=== PATIENT | male | born 1950 | race Caucasian/White ===

== ENCOUNTER 2018-08-17 22:04 | Inpatient (IN) ==
--- NOTE | 2018-08-17 23:39 | Emergency Department Note ---
General Adult HPI - General Chief complaint: Cold/Flu Symptoms Stated complaint: Not feeling well Time Seen by Provider: 08/17/18 23:22 Mode of arrival: ambulatory - History of Present Illness HPI Narrative: This 68-year-old comes in with a host of different symptoms and wanting to be able to function better. He feels so weak that he almost stumbles. He has no history of anemia. He has had some skin rash. He has had some cough, some panic attacks, difficulty sleeping, back and rib pain, dizziness, shortness of breath, cold feet, numb toes. He easily falls and he has been described as feeling pale. REVIEW OF SYSTEMS: Has had chills and sweats. No sore throat or runny nose. Has had some panic. No chest pain. Has had some coughing that is some productive I believe. He has a history of a DVT. He does smoke marijuana daily. - Related Data Home Medications Medication Instructions Recorded Confirmed No Known Home Meds 08/18/18 08/18/18 Allergies Allergy/AdvReac Type Severity Reaction Status Date / Time No Known Drug Allergies Allergy Verified 07/29/17 14:22 Past Medical History - Past Medical History Medical history: Reports: DVT, other (No anemia. ). Denies: cancer, CVA (Minor occasional elevated or told that it was high.), DM, hypertension (Although intermittently has been at times elevated.), myocardial infarction, pulmonary embolus, thyroid disease Psychiatric history: Denies: anxiety, depression Surgical history ED: Reports: splenectomy, other (splenic surgery - spleen is still there per patient. Some prostate procedure probably sounds like TURP.) - Social History smoking status: Current every day smoker Alcohol use: Reports: None, Rarely Drug use: Reports: none Physical Exam Limitations: no limitations General appearance: alert, in no apparent distress, lethargic (Moderate), malaise (Moderate) Head: atraumatic, normocephalic Eye: Present: EOMI ENT: mucous membranes moist Neck: Present: trachea midline. Absent: lymphadenopathy, thyromegaly Chest: Present: symmetric chest wall rise Respiratory: Present: normal lung sounds bilaterally. Absent: respiratory distress, wheezes, stridor, accessory muscle use, prolonged expiratory phase Cardiovascular: Present: regular rate, normal rhythm, tachycardia. Absent: systolic murmur, diastolic murmur Abdominal: Present: soft. Absent: distention, tenderness, guarding, rebound, rigidity, organomegaly, mass Neurological: Present: alert, oriented X3 Psychiatric: Present: flat affect, serious Skin: Present: warm, dry Course Vital Signs Temperature 97.5 F 08/17/18 22:05 Pulse Rate 79 08/17/18 22:05 Respiratory Rate 18 08/17/18 22:05 Blood Pressure 197/95 08/17/18 22:05 Pulse Oximetry (%) 99 08/17/18 22:05 Temperature 98.1 F 08/18/18 09:40 Pulse Rate 74 08/18/18 02:18 Respiratory Rate 20 08/18/18 05:08 Blood Pressure 179/99 08/18/18 09:40 Pulse Oximetry (%) 95 08/18/18 06:01 Medical Decision Making - [facility] Narrative Medical decision making narrative: ECG, labs, chest x-ray. Uncertain specific cause for multitude of symptoms. Labs came back with a bicarb of 21 and no ketones in his urine but his blood sugar was almost 700. Because of this, I discussed his case with hospitalist and Dr. Tyson Oro kindly accepted care and transfer to inpatient for additional evaluation and/or treatment. Insulin drip started at low-dose. - Lab Data Lab results reviewed: Yes I reviewed the patient's lab results. Result diagrams: 08/18/18 03:45 08/18/18 03:45 Lab Results 08/17/18 08/17/18 08/17/18 Range/Units 23:45 23:45 23:45 WBC 8.9 (4.5-11.0) K/mcL RBC 5.44 (4.50-5.90) M/mcL Hgb 15.7 (13.5-16.5) g/dL Hct 47.1 (41.0-55.0) % MCV 86.7 (80.0-100.0) fL MCH 29.0 (26.0-34.0) pg MCHC 33.4 (31.0-36.0) g/dL RDW 12.1 (11.5-14.5) % Plt Count 203 (140-440) K/mcL MPV 9.8 (7.4-10.4) fL Gran % 61.4 (38.0-78.0) % Lymph % (Auto) 27.0 (15.5-49.0) % Power % (Auto) 8.7 (1.0-12.0) % Eos % (Auto) 2.3 (0.0-7.0) % Baso % (Auto) 0.6 (0.0-2.0) % Gran # 5.5 (1.8-8.0) K/mcL Lymph # (Auto) 2.4 (1.5-4.8) K/mcL Power # (Auto) 0.8 (0.1-0.9) K/mcL Eos # (Auto) 0.2 (0.0-0.7) K/mcL Baso # (Auto) 0.1 (0.0-0.3) K/mcL Sodium 126 L (133-145) mmol/L Potassium 4.5 (3.3-5.1) mmol/L Chloride 90 L (96-108) mmol/L Carbon Dioxide 23 (22-30) mmol/L Anion Gap 13.0 (8-16) BUN 33 H (8-23) mg/dl Creatinine 1.4 H (0.7-1.2) mg/dl GFR Calculation 52 Glucose 691 H* (70-105) mg/dL Osmolality 319 H (280-300) mOSM/kg Calcium 8.6 (8.6-10.4) mg/dl Total Bilirubin 0.7 (0.0-1.0) mg/dL AST 29 (0-37) U/l ALT 46 H (0-40) U/l Alkaline Phosphatase 163 H (39-117) U/L C-Reactive Protein 0.3 (0.0-0.8) mg/dl Total Protein 7.3 (5.9-8.4) gm/dL Albumin 3.7 (3.2-5.2) gm/dL Globulin 3.6 (2.2-3.7) gm/dL Albumin/Globulin Ratio 1.0 (1.0-2.3) TSH 3.36 (0.27-5.01) uIU/ml - Radiology Data Radiology results reviewed: Yes I reviewed the patient's radiology results. Disposition Pt seen by MAGNETIC PROSPECTING SUPERVISOR/PA only: No Clinical Impression: Cigarette smoker Diabetes mellitus type 2, uncontrolled Qualifiers: Glycemic state: with hyperglycemia Qualified Code(s): E11.65 - Type 2 diabetes mellitus with hyperglycemia Summary: 1:27 a.m. - discussed with hospitalist, Dr. Tyson Oro, who kindly accepts this patient for inpatient care for insulin drip, etc. Disposition: Xfer As Inpt ([facility]) Condition: Fair
[2018-08-18 00:20] LABS: Basophils # (Auto) 0.1 K/mcL (0.0-0.3); Basophils % (Auto) 0.6 % (0.0-2.0); Eosinophils # (Auto) 0.2 K/mcL (0.0-0.7); Eosinophils % (Auto) 2.3 % (0.0-7.0); Granulocytes % (Auto) 61.4 % (38.0-78.0); Lymphocytes # (Auto) 2.4 K/mcL (1.5-4.8); Mean Cell Volume 86.7 fL (80.0-100.0); Mean Corpuscular HGB Conc 33.4 g/dL (31.0-36.0); Monocytes # (Auto) 0.8 K/mcL (0.1-0.9); Monocytes % (Auto) 8.7 % (1.0-12.0); Platelet Count 203 K/mcL (140-440); RBC 5.44 M/mcL (4.50-5.90); Red Cell Distribution Width 12.1 % (11.5-14.5)
[2018-08-18 00:49] LABS: ALT/SGPT 46 U/l (0-40); Albumin 3.7 gm/dL (3.2-5.2); Alkaline Phosphatase 163 U/L (39-117); Blood Urea Nitrogen 33 mg/dl (8-23); C-Reactive Protein 0.3 mg/dl (0.0-0.8)
[2018-08-18] MEDS ORDERED: INSULIN REGULAR, HUMAN 1 UNIT/0.01 ML UNIT IV ONE (00:53)
[2018-08-18] MEDS ORDERED: ACETAMINOPHEN 325 MG TABLET PO PRN (01:25)
[2018-08-18] MEDS ORDERED: ONDANSETRON 4 MG/2 ML VIAL IV PRN ×3 (01:25→08:57)
[2018-08-18] MEDS ORDERED: INSULIN REGULAR, HUMAN 50 UNIT in 0.9 % SODIUM CHLORIDE 99.5 ML IV SCH ×2 (01:30→08:52)
[2018-08-18] MEDS ORDERED: 0.9 % SODIUM CHLORIDE 1,000 ML IV SCH ×2 (01:30→06:14)
[2018-08-18] MEDS ORDERED: INSULIN REGULAR, HUMAN 1 UNIT/0.01 ML UNIT ONE ×3 (02:17→06:02)
[2018-08-18] MEDS ORDERED: 0.9 % SODIUM CHLORIDE 250 ML IV SCH ×2 (02:45→08:52)
[2018-08-18 05:41] LABS: ABG Methemoglobin 0.3 % (0.4-1.5); VBG Base Excess 0 (-2.0-2.0); VBG HCO3 26.3 mmol/L (24.0-28.0); VBG Oxygen Saturation 64.3 % (40.0-70.0); VBG PCO2 48.7 mmHg (41.0-51.0); VBG PH 7.35 U (7.32-7.42); VBG PO2 39 mmHg (25-40); VBG Total CO2 27.8 mmol/L (25.0-29.0)
--- NOTE | 2018-08-18 05:53 | XRay Report ---
CLINICAL INFORMATION: short of breath COMPARISON: 07/29/2017 FINDINGS: Heart size, mediastinum and pulmonary vessels are normal. The lungs are clear. Mild pleural parenchymal scarring blunts the left costophrenic angle - as previously seen. No effusions. Bones and soft tissues are normal IMPRESSION: No acute disease Interpreted and Authenticated by: Aiden Forbes 08/18/18
[2018-08-18 05:59] LABS: Basophils # (Auto) 0 K/mcL (0.0-0.3); Basophils % (Auto) 0.6 % (0.0-2.0); Eosinophils # (Auto) 0.2 K/mcL (0.0-0.7); Eosinophils % (Auto) 2.3 % (0.0-7.0); Granulocytes % (Auto) 66.1 % (38.0-78.0); Lymphocytes # (Auto) 1.9 K/mcL (1.5-4.8); Lymphocytes % (Auto) 21.8 % (15.5-49.0); Mean Cell Volume 86.1 fL (80.0-100.0); Monocytes # (Auto) 0.8 K/mcL (0.1-0.9); Monocytes % (Auto) 9.2 % (1.0-12.0); Platelet Count 182 K/mcL (140-440); RBC 4.76 M/mcL (4.50-5.90); Red Cell Distribution Width 12.6 % (11.5-14.5)
[2018-08-18 07:07] LABS: ALT/SGPT 36 U/l (0-40); Albumin 2.9 gm/dL (3.2-5.2); Albumin/Globulin Ratio 1.1 (1.0-2.3); Alkaline Phosphatase 116 U/L (39-117); Bilirubin,Direct < 0.2 mg/dL (0.0-0.3); Blood Urea Nitrogen 28 mg/dl (8-23); Gamma Glutamyl Transpeptidase 33 U/L (8-61); Uric Acid 3.9 mg/dL (2.5-8.0)
[2018-08-18] MEDS ORDERED: DEXTROSE 5%-NS 1,000 ML IV SCH ×2 (08:00→08:52)
[2018-08-18 08:10] LABS: Appearance,Urine CLOUDY; Bacteria,Urine 0 /hpf (0); Bilirubin,Urine NEG (NEG); Color,Urine YELLOW; Glucose,Urine (UA) >=500 mg/dL (NEG); Leukocyte Esterase,Urine 500 /uL (NEG); Protein,Urine 100 mg/dL (NEG); Urine Blood 0.03 mg/dL (<0.03); Urine RBC 28 /hpf (0-1); Urine Squamous Epithelial Cell 0 /hpf (0-4); Urine WBC > 182 /hpf (0-4); Urobilinogen,Urine NEG (NEG)
--- NOTE | 2018-08-18 08:31 | Internal Med History&Physical ---
Medical - H&P: [facility] Patient information: Note initiated : 08/18/18 at 8:28 am Service Date, if different from initiated Date: [] Patient: Charly Vilchis 68 y/o M admitted on 08/18/18 for Not feeling well. Chief Complaint: [] History of present illness: Mr. Vilchis is a 68 year old M who presents to the ER after not feeling well for roughly 2 weeks. He complains of shakiness lightheadedness weakness poor sleep anxiety. He has polyuria polydipsia. He is a chronic cough but feels like it is a little bit worse than usual to dry cough. He has some shortness of breath associated with it. He carries no diagnosis of any medical conditions. He states it takes him half an hour to get ready to go to grocery store because he is so weak and fatigued. Occasional headaches. In the ER workup showed a severe hyperglycemia. Chest x-ray unremarkable. And mildly hypertensive. Put on insulin drip. Review of Systems: Pertinent positives as above. Denies fever/chills/nausea/vomiting/chest or abdominal pain/diarrhea. 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 Family history: Mother was healthy Father had unknown cancer Social history: Patient smokes a pack per day cigarettes occasionally drinks alcohol use marijuana regularly lives by himself Medical - H&P: Meds Allergies Allergy/AdvReac Type Severity Reaction Status Date / Time No Known Drug Allergies Allergy Verified 07/29/17 14:22 Medical - H&P: Exam - Constitutional Vitals: Temp Pulse Resp BP Pulse Ox 98.3 F 74 20 170/87 97 08/18/18 02:07 08/18/18 02:18 08/18/18 05:08 08/18/18 05:08 08/18/18 05:08 Exam: General: Alert, Awake, No acute Distress Eyes/N/T: EOMI, PEERL, DMM Head/Neck: neck supple, normocephalic atraumatic CV: RRR, No murmurs, normal s1/s2 Pulm: Clear b/l, no wheezing/rhonchi/rales Abd: soft, nontender, +BS x4 Ext: no clubbing/cyanosis/edema Neuro: Alert, no focal deficits, moves all extremities, CN 2-12 grossly intact, symmetrical strength b/l upper/lower, sensations intact b/l upper/lower Skin: warm/dry Medical - H&P: Reslt - Labs CBC & Chem 7: 08/18/18 03:45 08/18/18 03:45 Labs: Short CBC 08/17/18 08/18/18 Range/Units 23:45 03:45 WBC 8.9 8.9 (4.5-11.0) K/mcL Hgb 15.7 14.0 (13.5-16.5) g/dL Hct 47.1 41.0 (41.0-55.0) % Plt Count 203 182 (140-440) K/mcL BMP 08/17/18 08/18/18 23:45 03:45 Sodium 126 L 135 Potassium 4.5 3.4 Chloride 90 L 101 Carbon Dioxide 23 22 BUN 33 H 28 H Creatinine 1.4 H 1.2 Glucose 691 H* 510 H* Calcium 8.6 6.9 L Liver Function 08/17/18 08/18/18 Range/Units 23:45 03:45 Total Bilirubin 0.7 0.6 (0.0-1.0) mg/dL Direct Bilirubin < 0.2 (0.0-0.3) mg/dL GGT 33 (8-61) U/L AST 29 24 (0-37) U/l ALT 46 H 36 (0-40) U/l Alkaline Phosphatase 163 H 116 (39-117) U/L Albumin 3.7 2.9 L (3.2-5.2) gm/dL Urine 08/18/18 Range/Units 07:18 Urine Color Yellow Urine Appearance Cloudy Urine pH 6.0 (5.0-9.0) Ur Specific [place] 1.020 (1.000-1.035) Urine Protein 100 A (NEG) mg/dL Urine Glucose (UA) >=500 A (NEG) mg/dL - ABG Interpretation ABG results: 08/18/18 03:45 ABG Methemoglobin 0.3 L VBG pH 7.35 VBG pCO2 48.7 VBG pO2 39 VBG HCO3 26.3 VBG Total CO2 27.8 VBG O2 Saturation 64.3 VBG Base Excess 0 - Impressions Checks his chest x-ray unremarkable for any acute disease Medical - H&P: A/P - Narrative A/P Narrative: A: *DM (New Diagnosis) w/HHS: -A1c 14.7 *ASHWIN on CKD III: improving *Tobacco Abuse *HTN: has not been on any meds * P: -IVF's -wean insulin gtt off to basal insulin and SSI with accuchecks q4h for now -DM education -start norvasc and titrate BP meds, ACEI/ARB when renal fxn stable -f/u renal fxn -SSI -ADA diet -ppx: lovenox Medical - H&P: Qual - VTE Deep Vein Thrombosis/Pulmonary Embolism Present on Admission: No
[2018-08-18 08:49] LABS: Hemoglobin A1C 14.7 % HGB (4.0-6.0)
[2018-08-18] MEDS ORDERED: 0.9 % SODIUM CHLORIDE 1,000 ML IV ONE ×2 (08:50→08:52)
[2018-08-18] MEDS ORDERED: LACTULOSE 20 GM/30 ML ORAL.SOL PO PRN (08:57)
[2018-08-18] MEDS ORDERED: IPRATROPIUM/ALBUTEROL 3 ML AMPUL.NEB NEB PRN (08:57)
[2018-08-18] MEDS ORDERED: DEXTROSE 50% 50 ML VIAL IV PRN (08:57)
[2018-08-18] MEDS ORDERED: PROCHLORPERAZINE 10 MG TABLET PO PRN (08:57)
[2018-08-18] MEDS ORDERED: DEXTROSE 31 GM ORAL.SUSP PO PRN (08:57)
[2018-08-18] MEDS ORDERED: POTASSIUM CHLORIDE 40 MEQ in DEXTROSE 5% IN WATER 500 ML IV PRN (08:57)
[2018-08-18] MEDS ORDERED: MAGNESIUM SULFATE 2 GM/50 ML BAG IV PRN (08:57)
[2018-08-18] MEDS ORDERED: POTASSIUM CHLORIDE 20 MEQ TABLET PO PRN ×2 (08:57)
[2018-08-18] MEDS ORDERED: POLYETHYLENE GLYCOL 3350 17 GM PACKET PO PRN (08:57)
[2018-08-18] MEDS: DOCUSATE SODIUM 100 MG CAPSULE PO SCH ×2 (09:28→21:01)
[2018-08-18] MEDS: INSULIN LISPRO 1 UNIT/0.01 ML UNIT SQ SCH ×4 (09:28→21:09)
[2018-08-18] MEDS: INSULIN GLARGINE, HUMAN 1 UNIT/0.01 ML SQ SCH (09:28)
[2018-08-18] MEDS: FAMOTIDINE 20 MG TABLET PO SCH ×2 (09:28→21:01)
[2018-08-18] MEDS: amLODIPine 5 MG TABLET PO SCH (09:28)
[2018-08-18] MEDS: ENOXAPARIN 40 MG/0.4 ML SYRINGE SQ SCH (09:28)
[2018-08-18] MEDS: 0.9 % SODIUM CHLORIDE 1,000 ML IV SCH ×4 (09:38→19:41)
[2018-08-18] MEDS: ACETAMINOPHEN 325 MG TABLET PO PRN ×2 (09:40→19:40)
[2018-08-18] MEDS: LABETALOL 5 MG/ML ML IV PRN (13:31)
[2018-08-18] MEDS: 0.9 % SODIUM CHLORIDE 10 ML SYRINGE IV SCH ×2 (13:59→21:09)
[2018-08-18] MEDS: NICOTINE 21 MG PATCH TOPICAL SCH (19:23)
[2018-08-18] MEDS ORDERED: NICOTINE 21 MG PATCH TOPICAL ONE (19:24)
[2018-08-18] MEDS ORDERED: SENNOSIDES 1 TABLET PO PRN (21:00)
[2018-08-19] MEDS: LABETALOL 5 MG/ML ML IV PRN (01:43)
[2018-08-19 05:36] LABS: Basophils # (Auto) 0.1 K/mcL (0.0-0.3); Basophils % (Auto) 0.9 % (0.0-2.0); Eosinophils # (Auto) 0.3 K/mcL (0.0-0.7); Eosinophils % (Auto) 3.6 % (0.0-7.0); Granulocytes % (Auto) 56.1 % (38.0-78.0); Lymphocytes # (Auto) 2.3 K/mcL (1.5-4.8); Lymphocytes % (Auto) 29.7 % (15.5-49.0); Mean Cell Volume 86.8 fL (80.0-100.0); Mean Corpuscular HGB Conc 33.4 g/dL (31.0-36.0); Monocytes # (Auto) 0.8 K/mcL (0.1-0.9); Monocytes % (Auto) 9.7 % (1.0-12.0); Platelet Count 170 K/mcL (140-440); RBC 4.57 M/mcL (4.50-5.90); Red Cell Distribution Width 12.5 % (11.5-14.5)
[2018-08-19] MEDS: 0.9 % SODIUM CHLORIDE 10 ML SYRINGE IV SCH (05:47)
[2018-08-19 05:56] LABS: ALT/SGPT 35 U/l (0-40); Albumin 2.9 gm/dL (3.2-5.2); Alkaline Phosphatase 97 U/L (39-117); Bilirubin,Direct < 0.2 mg/dL (0.0-0.3); Blood Urea Nitrogen 16 mg/dl (8-23); Gamma Glutamyl Transpeptidase 33 U/L (8-61); Uric Acid 3.7 mg/dL (2.5-8.0)
[2018-08-19] MEDS ORDERED: cefTRIAXone 1 GM VIAL IV SCH (07:30)
[2018-08-19] MEDS ORDERED: LISINOPRIL 5 MG TABLET PO SCH (09:00)
[2018-08-19] MEDS: DOCUSATE SODIUM 100 MG CAPSULE PO SCH (09:23)
[2018-08-19] MEDS: amLODIPine 5 MG TABLET PO SCH (09:23)
[2018-08-19] MEDS: FAMOTIDINE 20 MG TABLET PO SCH (09:23)
[2018-08-19] MEDS: ENOXAPARIN 40 MG/0.4 ML SYRINGE SQ SCH (09:24)
[2018-08-19] MEDS: INSULIN LISPRO 1 UNIT/0.01 ML UNIT SQ SCH ×2 (09:25→11:20)
[2018-08-19] MEDS: INSULIN GLARGINE, HUMAN 1 UNIT/0.01 ML SQ SCH (09:25)
[2018-08-19] MEDS: NICOTINE 21 MG PATCH TOPICAL SCH (09:45)
--- NOTE | 2018-08-19 10:12 | Discharge Summary ---
Medical - DS: Prov Patient information: Note initiated : 08/19/18 at 10:06 am Service Date, if different from initiated Date: [] Patient: Charly Vilchis 68 y/o M admitted on 08/18/18 for Not feeling well. Chief Complaint: [] Date of admission: 08/18/18 02:07 Discharge date: 08/19/18 Primary care physician: Sybil Pike Consults: 08/18/18 Consult to Physician [CONS] Stat Comment: Consulting Provider: Tyson Oro Reason For Exam: Physician to Consult Discharging clinician: Adilene Nicholson Medical - DS: Meds - Discharge Medications Prescriptions: Cefdinir 300 mg PO BID #12 cap glipiZIDE/METFORMIN HCL [Glipizide-Metformin 2.5-500 mg] 1 each PO BID #60 tab Lisinopril [Zestril] 10 mg PO DAILY #30 tab Active and Home Medications: Home Medications No Known Home Meds 08/18/18 [History Confirmed 08/18/18 Last Taken Unknown] Medical - DS: Hosp Hospital course: Mr. Vilchis is a 68 year old M who presents to the ER after not feeling well for roughly 2 weeks. He complains of shakiness lightheadedness weakness poor sleep anxiety. He has polyuria polydipsia. He is a chronic cough but feels like it is a little bit worse than usual to dry cough. He has some shortness of breath associated with it. He carries no diagnosis of any medical conditions. He states it takes him half an hour to get ready to go to grocery store because he is so weak and fatigued. Occasional headaches. In the ER workup showed a severe hyperglycemia. Chest x-ray unremarkable. And mildly hypertensive. Put on insulin drip and admitted to the hospital for further management, no e/o DKA The patient was weaned off the insulin drip and switched to SSI and lantus reg jaylin. The patient glucose control improved. The patient seems like an individual who will not be very compliant with insulin. I am starting the patient on oral metformin 500mg and glipizide 2.5mg bid, for now, and starting him on lisinopril 10mg once daily for bp control. Major risks benefits of the medication discussed, all questions answered. The patietn also has ua suggestive of UTI, and will be treated for 7 days with antibiotics, (cefdinir x 7 days) The patient was feeling much better today and expressed a strong desire to be discharged. Discharge diagnosis: New Diabetes, UTI, HTN - Time Spent with Patient Total time spent providing and/or coordinating discharge services: Greater than 30 minutes Medical - DS: Exam - Constitutional Vitals: Vital Signs Temp Pulse Pulse Resp BP BP Pulse Ox 08/19/18 03:49 98.3 F 16 175/92 99 08/19/18 02:06 153/96 08/19/18 02:01 66 152/89 96 08/19/18 01:56 68 161/91 98 08/19/18 01:51 78 161/93 97 08/19/18 01:48 79 162/99 96 08/19/18 01:46 82 137/122 96 08/19/18 01:40 82 184/111 96 08/19/18 01:31 80 174/97 97 08/19/18 01:29 85 179/108 96 08/19/18 01:27 87 192/112 98 08/19/18 01:24 88 189/132 98 08/19/18 01:22 87 169/126 98 08/19/18 01:17 192/108 08/19/18 01:15 181/98 08/19/18 00:06 98.2 F 76 16 178/106 100 08/18/18 20:01 98.8 F 18 145/89 97 08/18/18 20:00 97 08/18/18 19:36 89 183/114 97 08/18/18 16:40 154/90 08/18/18 16:00 99.0 F 68 18 154/90 97 08/18/18 14:29 139/97 08/18/18 14:16 131/75 08/18/18 14:03 113/57 08/18/18 14:01 113/57 08/18/18 13:33 228/199 08/18/18 12:00 98.7 F 96 H 20 169/101 96 08/18/18 11:52 169/101 Intake and Output 08/18/18 08/19/18 08/19/18 21:59 05:59 13:59 Intake Total 2380 / 7468 1240 / 7468 Output Total 1200 / 4125 2250 / 4125 Balance 1180 / 3343 -1010 / 3343 Intake: IV 1800 / 4008 1000 / 4008 Sodium Chloride 0.9% 1,000 ml @ 1800 / 2800 1000 / 2800 200 mls/hr IV .Q5H [facility] Rx#: [id number] Oral 580 / 2460 240 / 2460 Output: Void Amount 1200 / 3950 2250 / 3950 Other: Meal Dinner Percent of Meal Consumed 100% Feeding Ability Assist with Tray Set Up Urine Appearance Clear Cloudy Urine Color Dark Yellow Pale Urine Odor Strong Stool Size Large Stool Color Brown Green Stool Consistency Formed Weight 216 lb Additional comments: Constitutional; Afebrile, cooperative, alert, not in distress. Respiratory system: Air Entry equal on both sides, No crackles or wheezing, no rhonchi. CVS- Rate rhythm regular, S1,S2 heard, no gallop, no rub. Abdomen- Soft nontender abdomen, no organomegaly, no tenderness, no guarding or rigidity, TRAVELING STOREKEEPER- AOOx3, moving all extremities, no gross focal deficit noted. Medical - DS: Data Labs on day of discharge: Labs from last 24 hours 08/19/18 08/19/18 03:45 03:45 WBC 7.8 RBC 4.57 Hgb 13.3 L Hct 39.7 L MCV 86.8 MCH 29.0 MCHC 33.4 RDW 12.5 Plt Count 170 MPV 9.6 Gran % 56.1 Lymph % (Auto) 29.7 [place] % (Auto) 9.7 Eos % (Auto) 3.6 Baso % (Auto) 0.9 Gran # 4.4 Lymph # (Auto) 2.3 [place] # (Auto) 0.8 Eos # (Auto) 0.3 Baso # (Auto) 0.1 Sodium 137 Potassium 3.7 Chloride 106 Carbon Dioxide 20 L Anion Gap 11.0 BUN 16 Creatinine 1.1 GFR Calculation 70 Glucose 195 H Uric Acid 3.7 Calcium 7.5 L Phosphorus 2.0 L Magnesium 1.7 Total Bilirubin 0.6 Direct Bilirubin < 0.2 GGT 33 AST 27 ALT 35 Alkaline Phosphatase 97 Lactate Dehydrogenase 174 Total Protein 5.7 L Albumin 2.9 L Globulin 2.8 Albumin/Globulin Ratio 1.0 Triglycerides 103 Medical - DS: A/P - Patient/Caregiver Discharge Instructions Activity: increase activity as tolerated Diet: Consistent Carbohydrate Additional Instructions: Please test your glucose daily. Call your PCP if your glucose values are more than 400 If your symptoms worsen, or if you develop more symptoms. please go to the ER I am starting you on an antibiotic for a urinary tract infection, Cefdinir 1 capsule for 6 more days I am starting you no a medication called lisinopril for blood pressure control. I am starting you on metformin-glipizde for glucose control. This medication can sometimes cause low glucose values, if you notice shaking, nausea, sweating, or not feeling well, please check your glucose level. If glucose is < 70 please drink some juice or eat a chocolate. Please call your PCP to adjust your medication Follow up with PCP in 1 week Follow up with DM education as outpatient to improve you diet/ and lifestyle to help you deal with your diabetes. Prescriptions: Cefdinir 300 mg PO BID #12 cap glipiZIDE/METFORMIN HCL [Glipizide-Metformin 2.5-500 mg] 1 each PO BID #60 tab Lisinopril [Zestril] 10 mg PO DAILY #30 tab - Follow up Plan Follow up with: Sybil Pike ARNP [Primary Care Provider] - 08/24/18 12:00 pm Disposition: Home, Self-Care Prognosis: Fair Rehab Potential: Fair I certify that the patient requires SNF services: No Overall status at discharge: patient is progressing back to baseline Medical - DS: Qual - VTE Deep Vein Thrombosis/Pulmonary Embolism Present on Admission: No
== END 2018-08-19 12:00 | disposition home or self-care (01) | DRG 638 ==
LOC: ED 22:04 → ICU 08-18 02:05
PROVIDERS: ADMIT Internal Medicine; ATTEND Internal Medicine

== ENCOUNTER 2020-09-24 05:43 | Inpatient (IN) ==
[2020-09-24] MEDS ORDERED: IOPAMIDOL 100 ML BOTTLE IV ONE (05:44)
--- NOTE | 2020-09-24 06:18 | Emergency Department Note ---
Neuro HPI General Chief Complaint: Neuro Symptoms/Deficit Stated Complaint: Right side weakness since yesterday Time Seen by Provider: 09/24/20 05:55 Source: patient Mode of arrival: ambulatory Limitations: physical limitation History of Present Illness HPI Narrative: Narrative: Onset yesterday around 9 AM of right-sided weakness affecting his right arm and right leg. He has some movement. He admits to some methamphetamine yesterday which she was taking for treatment of pain that includes abdomen and low back pain. He denies recent fall or injury or hitting his head. Normally he lives with his girlfriend and gets around on his own. He was not able to do this in the past 24 hours and just peed into a urinal but he is urinating more frequent. Pain kept him awake last evening. He has not slept much during the night. He also has been urinating every couple of hours. He denies diarrhea or constipation or hematochezia or nausea or vomiting or fever. He had a little runny nose but this is chronic for him no sore throat. He does feel hungry and thirsty. Related Data Previous Rx's Medication Instructions Recorded blood sugar diagnostic #50 each 08/19/18 cefdinir 300 mg PO BID #12 cap 08/19/18 glipizide-metformin 1 each PO BID #60 tab 08/19/18 lisinopril 10 mg PO DAILY #30 tab 08/19/18 Allergies Allergy/AdvReac Type Severity Reaction Status Date / Time No Known Drug Allergies Allergy Verified 09/24/20 05:53 Review of Systems ROS ROS Narrative: Narrative: No fevers chills sweats No blurry vision or double vision Tatian's No cough or shortness of breath No rashes Little headache this morning. No lightheadedness No anxiety or depression. PFS Narrative Patient History Narrative: Narrative: Medical/Surgical/Family History All Active Problems Overweight (BMI 25.0-29.9) (Acute) Diabetes mellitus type 2, uncontrolled (Acute) Cigarette smoker (Chronic) Medical History (Updated 09/24/20 @ 06:18 by Pako Soni DO) Abscess of skin or subcutaneous tissue (Resolved) Acute urinary retention (Resolved) Cigarette smoker (Chronic) DVT (deep venous thrombosis) (Resolved) Laceration (Inactive) Overweight (BMI 25.0-29.9) (Acute) Pruritic condition (Resolved) Short of breath on exertion (Resolved) UTI (urinary tract infection) (Resolved) Social History Smoking Status: Current every day smoker Alcohol Intake Frequency: holiday/special occasion only Substance Use: marijuana (occasionally for pain) and amphetamines (meth yesterday) Exam Narrative Narrative: Narrative: General Limitations: physical limitation General appearance: Present alert, in no apparent distress, nontoxic and sleepy; Absent anxious Head Head: Present atraumatic and normocephalic Eye Eye: Present PERRL and EOMI; Absent conjunctival injection ENT ENT: Present normal oropharynx, mucous membranes moist and other (Symmetric midline tongue and uvula. Tongue is moderately white but homogeneous.) Neck Neck: Present trachea midline; Absent tenderness and lymphadenopathy Chest Chest: Present normal inspection and symmetric chest wall rise Respiratory Respiratory: Present normal lung sounds bilaterally; Absent respiratory distress, rales/crackles, wheezes, accessory muscle use and prolonged expiratory phase Cardiovascular Cardiovascular: Present regular rate and normal rhythm; Absent systolic murmur Adbominal Abdominal: Present soft and tenderness (Mild diffuse.); Absent distention, guarding, rebound, rigidity and organomegaly Extremities Extremities: Present normal inspection; Absent tenderness, pedal edema, pretibial edema and calf tenderness Back Back: Present normal inspection; Absent CVA tenderness (R), CVA tenderness (L) and spinous process tenderness Neurological Neurological: Present alert and oriented X3 Psychiatric Psychiatric: Present flat affect, serious and poor eye contact; Absent agitated, anxious and homicidal ideation Skin Skin: Present warm (WNL) and normal color Course Vital Signs Vital signs: Vital Signs Temperature 97.4 F 09/24/20 05:44 Pulse Rate 87 09/24/20 05:44 Respiratory Rate 19 09/24/20 05:44 Blood Pressure 209/132 09/24/20 05:44 Pulse Oximetry (%) 99 09/24/20 05:44 Temperature 97.4 F 09/24/20 05:44 Pulse Rate 78 09/24/20 06:59 Respiratory Rate 18 09/24/20 06:59 Blood Pressure 191/125 09/24/20 06:59 Pulse Oximetry (%) 97 09/24/20 06:59 MDM MDM Narrative Medical decision making narrative: Narrative: 5:58 AM - right sided weakness since yesterday morning of uncertain etiology or cause. Some abdominal pain and back pain. Will do CT scan of the head and multiple labs. 7 AM - CT scan of the head: 1. Cerebral atrophy 2. White matter abnormality and nonacute lacunar infarctions 3. No acute abnormality Due to change in shift patient's care transferred to Dr. Sorto who will finalize patient's evaluation and disposition. Lab Data Result diagrams: 09/24/20 06:35 09/24/20 06:35 Discharge Plan Patient/Caregiver Discharge Instructions Pt seen by CENTRAL LAB TECHNICIAN/PA only: No Patient Disposition: Still a Patient Condition: Undetermined Follow up with: Sybil Pike ARNP [Primary Care Provider] - Prescriptions: No Action (DME) blood sugar diagnostic strip See Dose Instructions .ROUTE .MEDSUPPLY Qty: 50 RF: 0 cefdinir 300 MG capsule 300 mg PO BID Qty: 12 RF: 0 lisinopril 10 MG tablet 10 mg PO DAILY Qty: 30 RF: 0 glipizide-metformin 1 EACH tablet 1 each PO BID Qty: 60 RF: 0
--- NOTE | 2020-09-24 07:00 | Cat Scan Report ---
INDICATION: right sided weakness onset yestd AM COMPARISON: None. TECHNIQUE: Axial noncontrast-enhanced images through the brain. Sagittally and coronally reformatted images. FINDINGS: Cerebral hemispheres:No intraaxial hemorrhage. Cerebral atrophy age. Prominent ventricles and superficial subarachnoid spaces. There is extensive white matter abnormality. Generalized low attenuation consistent with small vessel ischemic change. There are nonacute infarctions both thalami and right caudate nucleus. These findings are advanced for age. Or diabetes recommended. White matter abnormality is nonspecific. Demyelinating disease, vasculitis, ADEM could have a similar appearance No localized mass effect. No acute abnormality Brainstem and cerebellum:No intra-axial abnormality Extra-axial:No acute hemorrhage. No subdural or epidural hematoma. No subarachnoid hemorrhage. Basilar cisterns are normal Calvarial:No calvarial fracture. No lytic lesion Temporal bones are negative. No destructive lesions Soft tissue, orbits, sinuses:Orbits and visualized facial soft tissues and paranasal sinuses are negative IMPRESSION: 1. Cerebral atrophy 2. White matter abnormality and nonacute lacunar infarctions 3. No acute abnormality The exam was performed using radiation dose optimization techniques including, but not limited to, automated exposure control, adjustment of the mA and/or kV according to patient size and use of iterative reconstruction technique. Interpreted and Authenticated by: Aiden Lester 09/24/20
[2020-09-24 07:24] LABS: Basophils # (Auto) 0.09 K/mcL (0.00-0.20); Basophils % (Auto) 1.1 % (0.0-2.0); Eosinophils # (Auto) 0.32 K/mcL (0.00-0.70); Eosinophils % (Auto) 3.9 % (0.0-7.0); Hematocrit 45.1 % (41.0-55.0); Hemoglobin 15.5 g/dL (13.5-16.5); Lymphocytes # (Auto) 2.06 K/mcL (1.50-4.80); Lymphocytes % (Auto) 24.8 % (15.0-49.0); Mean Cell Volume 84.6 fL (80.0-100.0); Mean Corpuscular HGB Conc 34.4 g/dL (31.0-36.0); Mean Platelet Volume 9.9 fL (7.4-10.4); Monocytes # (Auto) 0.77 K/mcL (0.10-0.90); Monocytes % (Auto) 9.3 % (1.0-12.0); Neutrophils % (Auto) 60.9 % (38.0-78.0); Platelet Count 221 K/mcL (140-440); RBC 5.33 M/mcL (4.50-5.90); Red Cell Distribution Width 12.6 % (11.5-14.5); WBC 8.3 K/mcL (4.5-11.0)
[2020-09-24] MEDS ORDERED: hydrALAZINE 20 MG/ML VIAL IV ONE (07:27)
[2020-09-24] MEDS ORDERED: 0.9 % SODIUM CHLORIDE 1,000 ML IV ONE ×4 (07:27→10:50)
--- NOTE | 2020-09-24 07:34 | Emergency Department Note ---
Neuro HPI General Chief Complaint: Neuro Symptoms/Deficit Stated Complaint: Right side weakness since yesterday Time Seen by Provider: 09/24/20 05:55 Source: patient Mode of arrival: ambulatory Limitations: physical limitation History of Present Illness HPI Narrative: 70-year-old male was initially seen by my colleague Dr. Soni and worked up for possible stroke. Initial CT scan of the head was negative. Patient has been urinating frequently and notes right-sided arm and leg weakness. I reviewed Dr. Soni's note. Related Data Previous Rx's Medication Instructions Recorded blood sugar diagnostic #50 each 08/19/18 cefdinir 300 mg PO BID #12 cap 08/19/18 glipizide-metformin 1 each PO BID #60 tab 08/19/18 lisinopril 10 mg PO DAILY #30 tab 08/19/18 Allergies Allergy/AdvReac Type Severity Reaction Status Date / Time No Known Drug Allergies Allergy Verified 09/24/20 05:53 Review of Systems ROS ROS Narrative: Narrative: PFSH Narrative Patient History Narrative: Narrative: Medical/Surgical/Family History All Active Problems Hypertensive urgency (Acute) Acute kidney injury (Acute) Acute dehydration (Acute) DVT (deep venous thrombosis) (Acute) Cellulitis (Acute) Weakness (Acute) Hypertension (Acute) Overweight (BMI 25.0-29.9) (Acute) Diabetes mellitus type 2, uncontrolled (Acute) Cigarette smoker (Chronic) Medical History (Updated 09/24/20 @ 10:24 by Aki Sorto MD) Abscess of skin or subcutaneous tissue (Resolved) Acute urinary retention (Resolved) Cigarette smoker (Chronic) DVT (deep venous thrombosis) (Resolved) Laceration (Inactive) Overweight (BMI 25.0-29.9) (Acute) Pruritic condition (Resolved) Short of breath on exertion (Resolved) UTI (urinary tract infection) (Resolved) Social History Smoking Status: Current every day smoker Alcohol Intake Frequency: holiday/special occasion only Substance Use: marijuana (occasionally for pain) and amphetamines (meth yesterday) Exam Narrative Narrative: Narrative: Bilateral acid patroller are normal. He is able to move both arms and sensation does seem to be intact on his right arm and right leg. When distracted he moves both. I did palpate both right arm and right leg and I do not see any concerning features. He does seem to be sensing pressure and light touch withdrawing to pain. His IV is in his right hand and he will not move his right arm unless that IV is free. Cranial nerves II through XII grossly intact. He is able to speak without dysarthria. I do not see a tremor. Looking at the left leg it is more edematous (but still mild) than the right and additionally it is hot compared to the right with some redness at the calf and the foot concerning for cellulitis versus DVT. Poor hygiene noted at the feet especially the nails. However I do not see any ulcers. General Limitations: physical limitation Course Vital Signs Vital signs: Vital Signs Temperature 97.4 F 09/24/20 05:44 Pulse Rate 87 09/24/20 05:44 Respiratory Rate 19 09/24/20 05:44 Blood Pressure 209/132 09/24/20 05:44 Pulse Oximetry (%) 99 09/24/20 05:44 Temperature 97.4 F 09/24/20 05:44 Pulse Rate 97 H 09/24/20 09:31 Respiratory Rate 24 H 09/24/20 10:01 Blood Pressure 204/116 09/24/20 10:01 Pulse Oximetry (%) 92 09/24/20 09:31 MDM MDM Narrative Medical decision making narrative: Narrative: I reviewed notes and available medical history on patient before reevaluating him. He was trying to urinate but could not because he said he was dry. Ordered IV fluids. He was given hydralazine for elevated blood pressures hypertensive urgency Initial CT scan was negative but as he was complaining of right-sided weakness in the arms and legs we will go ahead and do CT angiogram of the head and neck- he was not a TPA candidate as it was approximately 24 hours before coming in after onset of symptom. However he may be eligible for other interventions depending on severity etc. I reevaluated him and tried to get more history. The patient is very belligerent and uncooperative. As best we can do NIH stroke scale is going to be at 2 but he is not cooperative for exam-frequently cussing and not wanting to do what we have asked him to do. Do not know what his baseline neurologic status is, but it does sound like he was able to walk and move around normally at home without assistance before this week-however he is not a great historian and when I pressure him to try to get exact timing as to when his symptoms came on, he gives varying accounts- it could have been as long ago as a week. He states he does not have a primary care doctor. As best as I can tell us he is having weakness in the right arm and leg but some of this is subjective. Lack of cooperation by patient does limit my ability to fully assess his neurologic status. On exam I note that he may have cellulitis versus even a DVT at that le ft lower leg. His right arm and right leg do not seem particularly weak or insensate but again he is not totally cooperative for my exam. When distracted he does move both his right arm and his right leg. I ordered ultrasound of the left leg CT angiogram of the head and neck are negative. Continued IV fluids as his creatinine is elevated. Baseline creatinine does look to be normal-it is uncl ear when his creatinine jumped up to 2.4 here today. Troponin is modestly elevated as well at .04 but this is likely secondary to the acute renal injury- EKG does not show evidence of ACS. He is not having chest pain. It is noted that the patient says he has not urinated since he has been here. He states he is able to eat and drink normally so we gave him some water with a straw-he was able to drink that without difficulty. Ordered bladder scan as well. Per report patient denies any trauma-CK is normal. He is complaining of back pain from lying in the bed. He is able to move around the bed without assistance. Bladder scan shows over 1000 mL in his bladder. He was able to void 250 mL and urine dipstick was negative for UTI or hematuria. Specific gravity was 1.020 which is borderline for dehydration Ultrasound left lower extremity shows old clot in the femoral vein. When comp ared to 2017-there was extensive DVT then-there is no new clot. He is not on blood thinners currently. It does look like he has some cellulitis then so we will start him on some clindamycin for that-low dose because of his kidney function. Covid test done in anticipation of admission for acute kidney injury, hypertensive urgency/emergency, and cellulitis. Urine drug screen was ordered as patient admitted to using methamphetamines yesterday and this could account for some of his symptomatology Blood pressure came down into the 170s to 190s systolic with hydralazine but it is unclear what his baseline is. Hydralazine wore off and his blood pressure began to climb back up into the 200s I ordered labetalol. I reevaluated the patient find that he continues to feel too weak to stand up. Denies seeing a doctor for the last couple of years and is not currently on any medicine. I tried to get him to tell me exactly when symptoms started and sort out what actually happened but his story changes. He may have actually had symptoms starting back 6 days ago on Friday, but then his urinary issues started yesterday-so he says. It is not clear to me as the patient story has changed several times. I advised the patient that he ought to come in the hospital so that we could care for his multiple medical issues but at first he refused . I advised the patient that he could leave AGAINST MEDICAL ADVICE, but that I would not treat him as an outpatient because he is clearly noncompliant; in order to get his blood pressure under control and get his kidneys working better he would need to come in the hospital. He agreed to stay I discussed the case with Dr. Lema, hospitalist. He agreed to accept the patient for further care and evaluation. He recommended nicardipine drip for t he hypertensive urgency. I ordered repeat troponin as well to trend that. Gina rapid Covid test negative Lab Data Lab results reviewed: Yes I reviewed the patient's lab results. Result diagrams: 09/24/20 06:35 09/24/20 06:35 Labs: Lab Results 09/24/20 09/24/20 09/24/20 Range/Units 06:35 06:35 06:35 WBC 8.3 (4.5-11.0) K/mcL RBC 5.33 (4.50-5.90) M/mcL Hgb 15.5 (13.5-16.5) g/dL Hct 45.1 (41.0-55.0) % MCV 84.6 (80.0-100.0) fL MCH 29.1 (26.0-34.0) pg MCHC 34.4 (31.0-36.0) g/dL RDW 12.6 (11.5-14.5) % Plt Count 221 (140-440) K/mcL MPV 9.9 (7.4-10.4) fL Neut % (Auto) 60.9 (38.0-78.0) % Lymph % (Auto) 24.8 (15.0-49.0) % [place] % (Auto) 9.3 (1.0-12.0) % Eos % (Auto) 3.9 (0.0-7.0) % Baso % (Auto) 1.1 (0.0-2.0) % Lymph # (Auto) 2.06 (1.50-4.80) K/mcL [place] # (Auto) 0.77 (0.10-0.90) K/mcL Eos # (Auto) 0.32 (0.00-0.70) K/mcL Baso # (Auto) 0.09 (0.00-0.20) K/mcL Absolute Neutrophils 5.05 (1.80-8.00) K/mcL VBG Lactic Acid 1.1 (0.5-2.0) mmol/L Sodium 136 (133-145) mmol/L Potassium 4.4 (3.3-5.1) mmol/L Chloride 104 (96-108) mmol/L Carbon Dioxide 21 L (22-30) mmol/L Anion Gap 11.0 (8.0-16.0) BUN 46 H (8-23) mg/dL Creatinine 2.4 H (0.7-1.2) mg/dL GFR Calculation 27 Glucose 144 H (70-105) mg/dL Calcium 8.3 L (8.6-10.4) mg/dL Total Bilirubin 0.7 (0.1-1.0) mg/dL AST 23 (<40) U/L ALT 31 (<40) U/L Alkaline Phosphatase 129 H (39-117) U/L Total Creatine Kinase (24-195) U/L Troponin T (<0.03) ng/mL C-Reactive Protein 0.10 (0.03-0.80) mg/dL Total Protein 6.7 (5.9-8.4) gm/dL Albumin 3.1 L (3.2-5.2) gm/dL Globulin 3.6 (2.2-3.7) gm/dL Albumin/Globulin Ratio 0.9 L (1.0-2.3) 09/24/20 09/24/20 Range/Units 06:35 06:35 WBC (4.5-11.0) K/mcL RBC (4.50-5.90) M/mcL Hgb (13.5-16.5) g/dL Hct (41.0-55.0) % MCV (80.0-100.0) fL MCH (26.0-34.0) pg MCHC (31.0-36.0) g/dL RDW (11.5-14.5) % Plt Count (140-440) K/mcL MPV (7.4-10.4) fL Neut % (Auto) (38.0-78.0) % Lymph % (Auto) (15.0-49.0) % [place] % (Auto) (1.0-12.0) % Eos % (Auto) (0.0-7.0) % Baso % (Auto) (0.0-2.0) % Lymph # (Auto) (1.50-4.80) K/mcL [place] # (Auto) (0.10-0.90) K/mcL Eos # (Auto) (0.00-0.70) K/mcL Baso # (Auto) (0.00-0.20) K/mcL Absolute Neutrophils (1.80-8.00) K/mcL VBG Lactic Acid (0.5-2.0) mmol/L Sodium (133-145) mmol/L Potassium (3.3-5.1) mmol/L Chloride (96-108) mmol/L Carbon Dioxide (22-30) mmol/L Anion Gap (8.0-16.0) BUN (8-23) mg/dL Creatinine (0.7-1.2) mg/dL GFR Calculation Glucose (70-105) mg/dL Calcium (8.6-10.4) mg/dL Total Bilirubin (0.1-1.0) mg/dL AST (<40) U/L ALT (<40) U/L Alkaline Phosphatase (39-117) U/L Total Creatine Kinase 177 (24-195) U/L Troponin T 0.04 H* (<0.03) ng/mL C-Reactive Protein (0.03-0.80) mg/dL Total Protein (5.9-8.4) gm/dL Albumin (3.2-5.2) gm/dL Globulin (2.2-3.7) gm/dL Albumin/Globulin Ratio (1.0-2.3) ED POC Tests ED POC Tests: GINA - SARS Antigen Negative Radiology Data Radiology results reviewed: Yes I reviewed the patient's radiology results. Radiology results narrative: CT scan of the head was negative for acute stroke. CT angiogram head and neck are negative as well Ultrasound shows old femoral vein clot but no acute DVT EKG Data EKG #1: EKG attestation: Yes I reviewed and interpreted this EKG. and Yes There are no EKG findings of acute coronary syndrome EKG results narrative: Sinus rhythm. May meet criteria for LVH. Morgan rderline long QT. Left axis deviation Discharge Plan Patient/Caregiver Discharge Instructions Pt seen by [employer]/PA only: No Clinical Impression: Hypertensive urgency, Acute kidney injury, Acute dehydration, Weakness DVT (deep venous thrombosis) Qualifiers: DVT location: lower extremity Affected thrombotic vein of extremity: femoral Chronicity: chronic Laterality: left Qualified Code(s): I82.512 - Chronic embolism and thrombosis of left femoral vein Cellulitis Qualifiers: Site of cellulitis: extremity Site of cellulitis of extremity: lower extremity Laterality: left Qualified Code(s): L03.116 - Cellulitis of left lower limb Patient Disposition: Xfer As Inpt ([facility]) Condition: Serious Follow up with: Sybil Pike ARNP [Primary Care Provider] - Prescriptions: No Action (DME) blood sugar diagnostic strip See Dose Instructions .ROUTE .MEDSUPPLY Qty: 50 RF: 0 cefdinir 300 MG capsule 300 mg PO BID Qty: 12 RF: 0 lisinopril 10 MG tablet 10 mg PO DAILY Qty: 30 RF: 0 glipizide-metformin 1 EACH tablet 1 each PO BID Qty: 60 RF: 0
[2020-09-24 07:43] LABS: ALT/SGPT 31 U/L (<40); AST/SGOT 23 U/L (<40); Albumin 3.1 gm/dL (3.2-5.2); Albumin/Globulin Ratio 0.9 (1.0-2.3); Alkaline Phosphatase 129 U/L (39-117); Bilirubin,Total 0.7 mg/dL (0.1-1.0); Blood Urea Nitrogen 46 mg/dL (8-23); Calcium 8.3 mg/dL (8.6-10.4); Carbon Dioxide 21 mmol/L (22-30); Chloride 104 mmol/L (96-108); Globulin 3.6 gm/dL (2.2-3.7); Glomerular Filtration Rate 27; Glucose 144 mg/dL (70-105)
--- NOTE | 2020-09-24 08:23 | Cat Scan Report ---
INDICATION: right arm and leg weakness COMPARISON: None. TECHNIQUE: Axial images were obtained through the upper chest, neck, and head during arterial phase. MIP and CPR reformatted images. 90ml Isovue 370 injected intravenously. FINDINGS: AORTIC ARCH: No significant calcified or noncalcified atherosclerotic plaque. Origins of the left subclavian artery, left vertebral artery, left common carotid artery, innominate artery, right common carotid artery, right subclavian artery, right vertebral artery are negative. No origin stenosis. CAROTID ARTERIES:Right: Right common carotid artery is negative. No stenosis or occlusion. No calcified or noncalcified plaque at the origin of the right internal carotid artery. No significant stenosis or evidence for ulceration. Right internal carotid artery is otherwise negative. No stenosis or occlusion. No fibromuscular dysplasia or dissection. Left: Left common carotid artery is negative. No stenosis or occlusion No calcified or noncalcified plaque at the origin of left internal carotid artery. No significant stenosis. No evidence for ulceration. Left internal carotid artery is otherwise negative. There is no stenosis or occlusion. No dissection or evidence for fibromuscular dysplasia VERTEBRAL ARTERIES:Vertebral arteries are patent without stenosis or occlusion [place]:[Mild calcified plaque in the cavernous segments of the internal carotid arteries. No significant stenosis or occlusion. M1 segments of the middle cerebral arteries and A1 segments of the anterior cerebral arteries are negative. Intracranial vertebral arteries and basilar artery are negative. Posterior cerebral arteries and superior cerebellar arteries are negative] INTRACRANIAL CIRCULATION:No intracranial branch occlusion. No arteriovenous malformation or aneurysm No dural sinus occlusion UPPER CHEST:Centrilobular emphysema suggests smoking history. Clinical correlation necessary. No focal pulmonary parenchyma. NECK:No solid or cystic soft tissue mass. No pathologic lymphadenopathy. BRAIN:No acute intracranial hemorrhage. No focal attenuation abnormalities or pathologic contrast enhancement. IMPRESSION: Negative CTA of the neck and brain The exam was performed using radiation dose optimization techniques including, but not limited to, automated exposure control, adjustment of the mA and/or kV according to patient size and use of iterative reconstruction technique. Interpreted and Authenticated by: Aiden Lester 09/24/20
[2020-09-24 09:09] LABS: Creatine Kinase 177 U/L (24-195)
[2020-09-24] MEDS ORDERED: LABETALOL 5 MG/ML ML IV ONE (09:52)
[2020-09-24] MEDS ORDERED: CLINDAMYCIN 600 MG in DEXTROSE 5% IN WATER 50 ML IV ONE (09:54)
[2020-09-24] MEDS ORDERED: CLINDAMYCIN 300 MG in DEXTROSE 5% IN WATER 50 ML IV ONE (09:55)
--- NOTE | 2020-09-24 10:03 | Ultrasound Report ---
INDICATION: redness swelling COMPARISON: None. TECHNIQUE: Grayscale and color flow Doppler spectral imaging of the deep venous system in the left lower extremity. FINDINGS: Appearance consistent with chronic, recanalized venous thrombosis in the left common femoral vein femoral vein. No occlusive thrombus. Popliteal vein and calf veins are negative. Greater saphenous vein is negative. IMPRESSION: 1. Findings consistent with recanalized chronic thrombus left common femoral vein and femoral vein 2. No acute deep venous thrombosis Interpreted and Authenticated by: Aiden Lester 09/24/20
[2020-09-24] MEDS ORDERED: CLINDAMYCIN 300 MG in DEXTROSE 5% IN WATER 50 ML IV STA (10:16)
--- NOTE | 2020-09-24 10:45 | Internal Med History&Physical ---
HPI History of Present Illness Patient information: Note initiated : 09/24/20 at 10:37 am Service Date, if different from initiated Date: [] Patient: Charly Vilchis a 70 y/o M admitted on for Right side weakness since yesterday. Chief Complaint: History of present illness: Mr. Vilchis is a 70 year old M with a history of IV meth amphetamine use/cigarette smoker/HTN/DM type II/prior lower extremity DVT not on anticoagulation who presents to the ER with 24-hour onset of right-sided weakness. Patient has not been able to perform his ADLs due to weakness over the last 24 hours and with increasing concerns he presented to the ER. Initial NIH score 2. Patient underwent head CT/CT angiogram head neck with no evidence of acute CVA or vascular occlusion however systolics elevated over 200. Received hydralazine minimal response. Blood work revealed elevated creatinine. Also lower extremity redness and tenderness was noted and an ultrasound reveals longstanding left common femoral vein thrombosis. Patient was started on antibiotic/antihypertensive. Hospital service was consulted in light of above presents of hypertensive crisis/ASHWIN/cellulitis/left- sided weakness. Patient was beyond the window for TPA. On further questioning by ER physician the time of onset of right-sided weakness was roughly 4 to 5 days ago. At the time of my evaluation patient is lethargic and states he feels diet dehydrated. He endorses history as above. He lives with his mother and has not been able to move around in the last 24 hours due to weakness. He has not eaten anything. He does feel hungry. He states that he used to see chest clinic many years ago but has stopped taking all his medication including antidiabetic and blood pressure pill as it made him sick. He also stopped taking his blood thinners for his lower extremity clot a while ago. At this moment in time he does not take any medications. He continues to smoke half to 1 pack a day. He states he gets around quite well being off medications. He has not checked his blood sugars or blood pressure in a long time. He denies vision loss, headache, tinnitus, incontinence or falls but endorses to increasing urinary frequency. He denies lower extremity swelling or pain but endorses to redness. He appears quite disheveled and in a state of extremely poor hygiene Review of systems 10 point review system was performed and is negative except for ones discussed above PFSH PFSH All Active Problems Hypertensive urgency (Acute) Acute kidney injury (Acute) Acute dehydration (Acute) DVT (deep venous thrombosis) (Acute) Cellulitis (Acute) Weakness (Acute) Hypertension (Acute) Overweight (BMI 25.0-29.9) (Acute) Diabetes mellitus type 2, uncontrolled (Acute) Cigarette smoker (Chronic) Medical History (Updated 09/24/20 @ 10:24 by Aki Sorto MD) Abscess of skin or subcutaneous tissue (Resolved) Acute urinary retention (Resolved) Cigarette smoker (Chronic) DVT (deep venous thrombosis) (Resolved) Laceration (Inactive) Overweight (BMI 25.0-29.9) (Acute) Pruritic condition (Resolved) Short of breath on exertion (Resolved) UTI (urinary tract infection) (Resolved) Social History smoking status: Current every day smoker alcohol intake frequency: holiday/special occasion only substance use type: marijuana (occasionally for pain) and amphetamines (meth yesterday) MEDS/ALLERGIES Home Medications and Allergies Home Medications Medication Instructions Recorded Confirmed Type blood sugar diagnostic #50 each 08/19/18 Rx cefdinir 300 mg PO BID #12 cap 08/19/18 Rx glipizide-metformin 1 each PO BID #60 tab 08/19/18 Rx lisinopril 10 mg PO DAILY #30 tab 08/19/18 Rx Allergies Allergy/AdvReac Type Severity Reaction Status Date / Time No Known Drug Allergies Allergy Verified 09/24/20 05:53 EXAM Constitutional Vitals: Temp Pulse Resp BP Pulse Ox 97.4 F 97 H 24 H 204/116 92 09/24/20 05:44 09/24/20 09:31 09/24/20 10:01 09/24/20 10:01 09/24/20 09:31 Unkempt, disheveled and extremely poor state of hygiene Head normocephalic Oral cavity dry No ear nose discharge Eye movement symmetrical Neck supple no lymphadenopathy S1-S2 tachycardia Rapid shallow nonlabored breathing Nondistended nontender abdomen Lower extremity lymphedema noted/bilateral below ankle erythema but no cyanosis clubbing or joint swelling, poor foot hygiene Skin no suspicious lesion Psych anxious with no hallucination Neuro initial NIH 2, subtle right-sided weakness, GCS 12 DATA Data Completed and Pending Labs: Labs from last 24 hours 09/24/20 09/24/20 09/24/20 09:25 06:35 06:35 WBC RBC Hgb Hct MCV MCH MCHC RDW Plt Count MPV Neut % (Auto) Lymph % (Auto) [place] % (Auto) Eos % (Auto) Baso % (Auto) Lymph # (Auto) [place] # (Auto) Eos # (Auto) Baso # (Auto) Absolute Neutrophils VBG Lactic Acid Sodium Potassium Chloride Carbon Dioxide Anion Gap BUN Creatinine GFR Calculation Glucose Calcium Total Bilirubin AST ALT Alkaline Phosphatase Total Creatine Kinase 177 Troponin T 0.04 H* C-Reactive Protein Total Protein Albumin Globulin Albumin/Globulin Ratio Urine Opiates Screen Pending Ur Opiates Confirm Pending Ur Oxycodone Screen Pending Urine Methadone Screen Pending Ur Methadone Confirm Pending Ur Barbiturates Screen Pending Ur Barbiturate Confirm Pending Ur Phencyclidine Scrn Pending Urine PCP Confirm Pending Ur Amphetamines Screen Pending U Amphetamines Confirm Pending U Benzodiazepines Scrn Pending U Benzodiazepine Confm Pending Urine Cocaine Screen Pending Urine Cocaine Confirm Pending U Cannabinoids Confirm Pending U Marijuana (THC) Screen Pending 09/24/20 09/24/20 09/24/20 06:35 06:35 06:35 WBC 8.3 RBC 5.33 Hgb 15.5 Hct 45.1 MCV 84.6 MCH 29.1 MCHC 34.4 RDW 12.6 Plt Count 221 MPV 9.9 Neut % (Auto) 60.9 Lymph % (Auto) 24.8 [place] % (Auto) 9.3 Eos % (Auto) 3.9 Baso % (Auto) 1.1 Lymph # (Auto) 2.06 [place] # (Auto) 0.77 Eos # (Auto) 0.32 Baso # (Auto) 0.09 Absolute Neutrophils 5.05 VBG Lactic Acid 1.1 Sodium 136 Potassium 4.4 Chloride 104 Carbon Dioxide 21 L Anion Gap 11.0 BUN 46 H Creatinine 2.4 H GFR Calculation 27 Glucose 144 H Calcium 8.3 L Total Bilirubin 0.7 AST 23 ALT 31 Alkaline Phosphatase 129 H Total Creatine Kinase Troponin T C-Reactive Protein 0.10 Total Protein 6.7 Albumin 3.1 L Globulin 3.6 Albumin/Globulin Ratio 0.9 L Urine Opiates Screen Ur Opiates Confirm Ur Oxycodone Screen Urine Methadone Screen Ur Methadone Confirm Ur Barbiturates Screen Ur Barbiturate Confirm Ur Phencyclidine Scrn Urine PCP Confirm Ur Amphetamines Screen U Amphetamines Confirm U Benzodiazepines Scrn U Benzodiazepine Confm Urine Cocaine Screen Urine Cocaine Confirm U Cannabinoids Confirm U Marijuana (THC) Screen A/P Narrative A/P Narrative: * Accelerated hypertension-unclear etiology possibly secondary to methamphetamine use. Use benzodiazepine/nicardipine drip to keep systolics around 160-180. * Acute renal failure-Baseline 1.1. Current creatinine 2.4. Possibility of diabetes and poorly controlled hypertension and associated volume depletion. continue crystalloids/avoid nephrotoxin and monitor renal function. Nephrology consult if deteriorating. Monitor for contrast-induced nephropathy (CTA contrast was performed in the ER) * Right-sided weakness start aspirin/statin. MRI brain a.m./echocardiogram to rule out PFO/paradoxic embolus in the setting of prior DVT and paradoxical embolus risk. However patient clearly advised that he would not be willing to take any blood thinners except for aspirin * Left lower extremity vein thrombosis-patient refused anticoagulation. * History of methamphetamine use counseled for cessation * DM type II continue sliding scale insulin/CC diet * Tobacco dependence-counseled for cessation * Full code Plan * Inpatient ICU admission * Nicardipine drip to maintain systolics 160-1 80 * MRI brain/echocardiogram/aspirin/statin/aggressive physical therapy * Monitor renal function and watch for contrast nephropathy, renal consult if deteriorating renal function * Pre-existing medical condition management home meds * IV drug and tobacco smoking cessation counseling * nutrition support/ST eval * Daily directed therapies Time Spent With Patient Time: Total time spent is greater than 50% in coordination of care (as documented) at patient's floor/unit and/or counseling patient:
[2020-09-24 10:56] LABS: Amphetamine Screen,Urine Suspect positive; Barbiturate Screen,Urine None detected; Benzodiazepines Screen,Urine None detected; Cannabinoid Screen,Urine Suspect Positive; Cocaine Screen,Urine None detected; Opiate Screen,Urine None detected; Oxycodone, Urine Screen None detected; Phencyclidine Screen,Urine None detected
[2020-09-24] MEDS ORDERED: BISACODYL 10 MG SUPP.RECT PR PRN (11:34)
[2020-09-24] MEDS ORDERED: DEXTROSE 50% 50 ML VIAL IV PRN (11:34)
[2020-09-24] MEDS ORDERED: niCARdipine 25 MG in 0.9 % SODIUM CHLORIDE 240 ML IV SCH (11:34)
[2020-09-24] MEDS ORDERED: ONDANSETRON 4 MG ODT TABLET SL PRN (11:34)
[2020-09-24] MEDS ORDERED: METOPROLOL TARTRATE 5 MG/5 ML VIAL IV PRN (11:34)
[2020-09-24] MEDS ORDERED: MELATONIN 3 MG TABLET PO PRN (11:34)
[2020-09-24] MEDS ORDERED: POTASSIUM CHLORIDE 20 MEQ PACKET PO PRN (11:34)
[2020-09-24] MEDS ORDERED: 0.9 % SODIUM CHLORIDE 1,000 ML IV SCH (11:34)
[2020-09-24] MEDS ORDERED: MAGNESIUM SULFATE 2 GM/50 ML BAG IV PRN (11:34)
[2020-09-24] MEDS ORDERED: ACETAMINOPHEN 325 MG TABLET PO PRN (11:34)
[2020-09-24] MEDS ORDERED: POLYETHYLENE GLYCOL 3350 17 GM PACKET PO PRN (11:34)
[2020-09-24] MEDS ORDERED: ONDANSETRON 4 MG/2 ML VIAL IV PRN (11:34)
[2020-09-24] MEDS ORDERED: ATORVASTATIN 20 MG TABLET PO SCH (11:34)
[2020-09-24] MEDS ORDERED: POTASSIUM CHLORIDE 40 MEQ in DEXTROSE 5% IN WATER 500 ML IV PRN (11:34)
[2020-09-24] MEDS ORDERED: CLINDAMYCIN 600 MG in DEXTROSE 5% IN WATER 50 ML IV SCH ×2 (11:34→22:00)
[2020-09-24] MEDS ORDERED: ACETAMINOPHEN 650 MG/65 ML BAG IV PRN (11:34)
[2020-09-24] MEDS ORDERED: DEXTROSE 31 GM ORAL.SUSP PO PRN (11:34)
[2020-09-24] MEDS: niCARdipine 25 MG in 0.9 % SODIUM CHLORIDE 240 ML IV SCH ×2 (11:43→13:24)
[2020-09-24] MEDS: INSULIN LISPRO 1 UNIT/0.01 ML UNIT SQ SCH ×2 (12:20→17:03)
[2020-09-24] MEDS ORDERED: 0.9 % SODIUM CHLORIDE 10 ML SYRINGE IV SCH (14:00)
--- NOTE | 2020-09-24 14:06 | Internal Med Progress Note ---
SUBJECTIVE Subjective Patient information: Note initiated : 09/24/20 at 2:03 pm Service Date, if different from initiated Date: [] Patient: Charly Vilchis a 70 y/o M admitted on 09/24/20 for Right side weakness since yesterday. Chief Complaint: [] Interval history: History of present illness: Mr. Vilchis is a 70 year old M with a history of IV meth amphetamine use/cigarette smoker/HTN/DM type II/prior lower extremity DVT not on anticoagulation who presents to the ER with 24-hour onset of right-sided weakness. Patient has not been able to perform his ADLs due to weakness over the last 24 hours and with increasing concerns he presented to the ER. Initial NIH score 2. Patient underwent head CT/CT angiogram head neck with no evidence of acute CVA or vascular occlusion however systolics elevated over 200. Received hydralazine minimal response. Blood work revealed elevated creatinine. Also lower extremity redness and tenderness was noted and an ultrasound reveals longstanding left common femoral vein thrombosis. Patient was started on antibiotic/antihypertensive. Hospital service was consulted in light of above presents of hypertensive crisis/ASHWIN/cellulitis/left- sided weakness. Patient was beyond the window for TPA. On further questioning by ER physician the time of onset of right-sided weakness was roughly 4 to 5 days ago. At the time of my evaluation patient is lethargic and states he feels diet dehydrated. He endorses history as above. He lives with his mother and has not been able to move around in the last 24 hours due to weakness. He has not eaten anything. He does feel hungry. He states that he used to see chest clinic many years ago but has stopped taking all his medication including antidiabetic and blood pressure pill as it made him sick. He also stopped taking his blood thinners for his lower extremity clot a while ago. At this moment in time he does not take any medications. He continues to smoke half to 1 pack a day. He states he gets around quite well being off medications. He has not checked his blood sugars or blood pressure in a long time. He denies vision loss, headache, tinnitus, incontinence or falls but endorses to increasing urinary frequency. He denies lower extremity swelling or pain but endorses to redness. He appears quite disheveled and in a state of extremely poor hygiene pt left AMA Constitutional Vitals: Vital Signs Temp Pulse Resp BP Pulse Ox 98.1 F 94 H 17 198/88 99 09/24/20 12:01 09/24/20 13:46 09/24/20 13:46 09/24/20 13:46 09/24/20 13:46 Period Temp Pulse Resp BP Sys/Resendiz Pulse Ox Last 24 Hr 97.4 F-98.1 F 68-101 11-27 141-221/75-136 92-100 Intake and Output 09/24/20 09/24/20 09/24/20 05:59 13:59 21:59 Intake Total 3473 Output Total 1350 Balance 2123 Weight 99.019 kg 100.698 kg Patient Weight 09/25/20 05:59 Weight 100.698 kg Intake & Output: Intake & Output 09/24/20 09/24/20 09/24/20 05:59 13:59 21:59 Intake Total 3473 Output Total 1350 Balance 2123 Weight 99.019 kg 100.698 kg Intake: IV 3473 Sodium Chloride 0.9% 1,000 ml @ 3416 Wide Open IV BOLUS ONE Rx#: [id number] Cleocin 300 mg In Dextrose 5% 52 in Water 50 ml @ 100 mls/hr IV ONCE ONE Rx#:[id number] Cardene 25 MG In Sodium 5 Chloride 0.9% 240 ml @ 5 MG/HR 50 mls/hr IV ONCE [facility] Rx#: [id number] Output: Urine Catheter Amount 1100 Void Amount 250 Other: Urine Appearance Clear Straight Clear Urine Color Dark Yellow Straight Dark Yellow Urine Odor Strong OBJ DATA Labs CBC & Chem 7: 09/24/20 06:35 09/24/20 06:35 Labs: Abnormal Lab Results 09/24/20 09/24/20 09/24/20 11:48 10:55 09:25 Carbon Dioxide BUN Creatinine Glucose Calcium Alkaline Phosphatase Troponin T 0.04 H* Albumin Albumin/Globulin Ratio Procalcitonin 0.17 H Ur Amphetamines Screen Suspect positive A U Marijuana (THC) Screen Suspect positive A 09/24/20 09/24/20 06:35 06:35 Carbon Dioxide 21 L BUN 46 H Creatinine 2.4 H Glucose 144 H Calcium 8.3 L Alkaline Phosphatase 129 H Troponin T 0.04 H* Albumin 3.1 L Albumin/Globulin Ratio 0.9 L Procalcitonin Ur Amphetamines Screen U Marijuana (THC) Screen Meds: Medications Acetaminophen (Tylenol) 650 mg PO Q4-6HP PRN; Protocol PRN Reason: Per Pain Protocol/Fever > 101 Aspirin (Ecotrin) 325 mg PO DAILY [facility] Atorvastatin Calcium (Lipitor) 40 mg PO HS [facility] Last Admin: 09/24/20 12:22 Dose: 40 mg Documented by: Bisacodyl (Dulcolax) 10 mg GA Q2-3DAYS PRN PRN Reason: Constipation Cyanocobalamin (Vitamin B-12) 1,000 mcg PO BID [facility] Stop: 09/29/20 09:01 Dextrose (Dextrose 50%) 0 ml IV UD PRN PRN Reason: Hypoglycemia Diagnostic Test (Pha) (Accu-Chek) 1 each FS ACHS [facility] Last Admin: 09/24/20 12:20 Dose: 1 each Documented by: Docusate Sodium (Colace) 100 mg PO BID [facility] Glucose (Insta-Glucose) 15 gm PO PRN PRN PRN Reason: Hypoglycemia Heparin Sodium (Porcine) (Heparin) 5,000 unit SQ Q12 [facility] Potassium Chloride 40 meq/ (Dextrose) 520 mls @ 130 mls/hr IV UD PRN PRN Reason: K+ = or < 3.5 Acetaminophen (Ofirmev) 650 mg in 65 mls @ 130 mls/hr IV Q6HP PRN; Protocol PRN Reason: Per Pain Protocol/Fever > 101 Magnesium Sulfate (Magnesium Sulfate) 2 gm in 50 mls @ 50 mls/hr IV UD PRN PRN Reason: MG = or < 1.7 Nicardipine HCl 25 mg/ Sodium (Chloride) 250 mls @ 50 mls/hr IV ONCE [facility]; Protocol Last Admin: 09/24/20 13:26 Dose: Not Given Documented by: Sodium Chloride (Sodium Chloride 0.9%) 1,000 mls @ 50 mls/hr IV .Q20H [facility] Stop: 09/26/20 23:33 Last Admin: 09/24/20 12:22 Dose: 50 mls/hr Documented by: Thiamine HCl 100 mg/ Sodium (Chloride) 51 mls @ 50 mls/hr IV DAILY [facility] Stop: 09/27/20 10:02 Clindamycin Phosphate 600 mg/ (Dextrose) 54 mls @ 100 mls/hr IV Q8H [facility]; Protocol Insulin Human Lispro (Humalog) 0 unit SQ ACHS [facility]; Protocol Last Admin: 09/24/20 12:20 Dose: 1 unit Documented by: Iron Carb/Multivit/[place]/Folic Acid (Multivitamin W/Minerals) 1 tab PO DAILY [facility] Melatonin (Melatonin 3mg Tablet) 3 mg PO HSP PRN PRN Reason: Insomnia Metoprolol Tartrate (Lopressor) 5 mg IV Q5M PRN PRN Reason: Heart Rate > 140 bpm Ondansetron HCl (Zofran Odt) 4 mg SL Q4-6HP PRN; Protocol PRN Reason: Nausea And Vomiting Ondansetron HCl (Zofran) 4 mg IV Q4-6HP PRN; Protocol PRN Reason: Nausea And Vomiting Polyethylene Glycol (Miralax) 17 gm PO DAILYP PRN PRN Reason: Constipation Potassium Chloride (Klor-Con) 40 meq PO DAILYP PRN PRN Reason: K+ < 3.5 Senna/Docusate Sodium (Senna Plus Tablet) 1 tab PO HS [facility] Sodium Chloride (Saline Flush) 10 ml IV Q8 [facility] Last Admin: 09/24/20 12:09 Dose: Not Given Documented by: A/P Narrative A/P Narrative: A: *Medication noncompliance: *Accelerated hypertension: 2/2 to being off medications and possibly methamphetamine + ?CVA -supposed to be on lisinopril/norvasc *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 Stated he would not be willing to take any blood thinners except for aspirin *Methamphetamine abuse: *DM type II: not taking meds *Tobacco abuse: Plan: -Nicardipine drip to prn meds -prn benzodiazepines -MRI brain/echocardiogram -ASA/Statin -IVF -Monitor renal function and watch for contrast nephropathy, renal consult if deteriorating renal function -continue sliding scale insulin/CC diet -Smoking/meth cessation counseling -nutrition support/ST eval -pt/ot -ppx: heparin Time Spent With Patient Time: Total time spent is greater than 50% in coordination of care (as documented) at patient's floor/unit and/or counseling patient: QUALITY Stroke Onset of Symptoms Date: 09/23/20 Symptom Onset Unknown: Yes VTE Deep Vein Thrombosis/Pulmonary Embolism Present on Admission: Yes
[2020-09-24] MEDS ORDERED: LABETALOL 5 MG/ML ML IV PRN (14:17)
[2020-09-24] MEDS ORDERED: LORazepam 2 MG/ML VIAL IV PRN (14:25)
[2020-09-24] MEDS: hydrALAZINE 20 MG/ML VIAL IV PRN ×2 (14:39→17:51)
[2020-09-24 14:42] LABS: HDL Cholesterol 39 mg/dL (>40); LDL Cholesterol,Calculated 51 mg/dL (<100); Non-HDL Cholesterol 72 mg/dL (<130); Triglycerides 107 mg/dL (<150)
--- NOTE | 2020-09-24 19:09 | Discharge Summary ---
Discharge Provider Provider Patient information: Note initiated : 09/24/20 at 7:06 pm Service Date, if different from initiated Date: [] Patient: Charly Vilchis 70 y/o M admitted on 09/24/20 for Right side weakness since yesterday. Chief Complaint: [] Date of admission: 09/24/20 11:30 Discharge date: 09/24/20 Primary care physician: Sybil Pike Consults: 09/24/20 Consult to Physician [CONS] Stat Comment: Consulting Provider: Tony Constantino Reason For Exam: Physician to Consult Discharge Meds Discharge Medications Home Medications blood sugar diagnostic #50 each 08/19/18 [Rx Confirmed 09/24/20 Last Taken Unknown] cefdinir 300 mg PO BID #12 cap 08/19/18 [Rx Confirmed 09/24/20 Last Taken Unknown] glipizide-metformin 1 each PO BID #60 tab 08/19/18 [Rx Confirmed 09/24/20 Last Taken Unknown] lisinopril 10 mg PO DAILY #30 tab 08/19/18 [Rx Confirmed 09/24/20 Last Taken Unknown] COURSE Hospital Course Hospital course: Interval history: History of present illness: Mr. Vilchis is a 70 year old M with a history of IV meth amphetamine use/cigarette smoker/HTN/DM type II/prior lower extremity DVT not on anticoagulation who presents to the ER with 24-hour onset of right-sided weakness. Patient has not been able to perform his ADLs due to weakness over the last 24 hours and with increasing concerns he presented to the ER. Initial NIH score 2. Patient underwent head CT/CT angiogram head neck with no evidence of acute CVA or vascular occlusion however systolics elevated over 200. Received hydralazine minimal response. Blood work revealed elevated creatinine. Also lower extremity redness and tenderness was noted and an ultrasound reveals longstanding left common femoral vein thrombosis. Patient was started on antibiotic/antihypertensive. Hospital service was consulted in light of above presents of hypertensive crisis/ASHWIN/cellulitis/left- sided weakness. Patient was beyond the window for TPA. On further questioning by ER physician the time of onset of right-sided weakness was roughly 4 to 5 days ago. At the time of my evaluation patient is lethargic and states he feels diet dehydrated. He endorses history as above. He lives with his mother and has not been able to move around in the last 24 hours due to weakness. He has not eaten anything. He does feel hungry. He states that he used to see chest clinic many years ago but has stopped taking all his medication including antidiabetic and blood pressure pill as it made him sick. He also stopped taking his blood thinners for his lower extremity clot a while ago. At this moment in time he does not take any medications. He continues to smoke half to 1 pack a day. He states he gets around quite well being off medications. He has not checked his blood sugars or blood pressure in a long time. He denies vision loss, headache, tinnitus, incontinence or falls but endorses to increasing urinary frequency. He denies lower extremity swelling or pain but endorses to redness. He appears quite disheveled and in a state of extremely poor hygiene pt left AMA Patient extremely high risk for decompensation given comorbidities and failure to adhere to medical advice in addition to taking home medication. 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 Stated he would not be willing to take any blood thinners except for aspirin *Methamphetamine abuse: *DM type II: not taking meds *Tobacco abuse: Discharge diagnosis: Medication noncompliance accelerated hypertension acute on chronic kidney disease right-sided weakness Secondary discharge diagnosis: Likely vascular dementia left for extremity DVT methamphetamine abuse tobacco abuse diabetes Time Spent with Patient Time attestation: Total time spent providing and/or coordinating discharge services: Time spent: Greater than 30 minutes EXAM Constitutional Vitals: Temp Pulse Resp BP Pulse Ox 97.7 F 72 13 168/81 97 09/24/20 16:01 09/24/20 15:01 09/24/20 18:01 09/24/20 18:01 09/24/20 17:04 Discharge Data Data Completed and Pending Labs on day of discharge: Labs from last 24 hours 09/24/20 09/24/20 09/24/20 11:48 11:48 11:48 WBC RBC Hgb Hct MCV MCH MCHC RDW Plt Count MPV Neut % (Auto) Lymph % (Auto) [place] % (Auto) Eos % (Auto) Baso % (Auto) Lymph # (Auto) [place] # (Auto) Eos # (Auto) Baso # (Auto) Absolute Neutrophils ESR 18 H VBG Lactic Acid Sodium Potassium Chloride Carbon Dioxide Anion Gap BUN Creatinine GFR Calculation Glucose Calcium Total Bilirubin AST ALT Alkaline Phosphatase Total Creatine Kinase Troponin T C-Reactive Protein 0.10 Total Protein Albumin Globulin Albumin/Globulin Ratio Triglycerides Cholesterol LDL Cholesterol, Calc Non-HDL Cholesterol HDL Cholesterol Procalcitonin 0.17 H Urine Opiates Screen Ur Opiates Confirm Ur Oxycodone Screen Urine Methadone Screen Ur Methadone Confirm Ur Barbiturates Screen Ur Barbiturate Confirm Ur Phencyclidine Scrn Urine PCP Confirm Ur Amphetamines Screen U Amphetamines Confirm U Benzodiazepines Scrn U Benzodiazepine Confm Urine Cocaine Screen Urine Cocaine Confirm U Cannabinoids Confirm U Marijuana (THC) Screen 09/24/20 09/24/20 09/24/20 10:55 10:55 09:25 WBC RBC Hgb Hct MCV MCH MCHC RDW Plt Count MPV Neut % (Auto) Lymph % (Auto) [place] % (Auto) Eos % (Auto) Baso % (Auto) Lymph # (Auto) [place] # (Auto) Eos # (Auto) Baso # (Auto) Absolute Neutrophils ESR VBG Lactic Acid Sodium Potassium Chloride Carbon Dioxide Anion Gap BUN Creatinine GFR Calculation Glucose Calcium Total Bilirubin AST ALT Alkaline Phosphatase Total Creatine Kinase Troponin T 0.04 H* C-Reactive Protein Total Protein Albumin Globulin Albumin/Globulin Ratio Triglycerides 107 Cholesterol 111 LDL Cholesterol, Calc 51 Non-HDL Cholesterol 72 HDL Cholesterol 39 L Procalcitonin Urine Opiates Screen None detected Ur Opiates Confirm Not Reportable Ur Oxycodone Screen None detected Urine Methadone Screen None detected Ur Methadone Confirm Not Reportable Ur Barbiturates Screen None detected Ur Barbiturate Confirm Not Reportable Ur Phencyclidine Scrn None detected Urine PCP Confirm Not Reportable Ur Amphetamines Screen Suspect positive A U Amphetamines Confirm Not Reportable U Benzodiazepines Scrn None detected U Benzodiazepine Confm Not Reportable Urine Cocaine Screen None detected Urine Cocaine Confirm Not Reportable U Cannabinoids Confirm Not Reportable U Marijuana (THC) Screen Suspect positive A 09/24/20 09/24/20 09/24/20 06:35 06:35 06:35 WBC RBC Hgb Hct MCV MCH MCHC RDW Plt Count MPV Neut % (Auto) Lymph % (Auto) [place] % (Auto) Eos % (Auto) Baso % (Auto) Lymph # (Auto) [place] # (Auto) Eos # (Auto) Baso # (Auto) Absolute Neutrophils ESR VBG Lactic Acid 1.1 Sodium Potassium Chloride Carbon Dioxide Anion Gap BUN Creatinine GFR Calculation Glucose Calcium Total Bilirubin AST ALT Alkaline Phosphatase Total Creatine Kinase 177 Troponin T 0.04 H* C-Reactive Protein Total Protein Albumin Globulin Albumin/Globulin Ratio Triglycerides Cholesterol LDL Cholesterol, Calc Non-HDL Cholesterol HDL Cholesterol Procalcitonin Urine Opiates Screen Ur Opiates Confirm Ur Oxycodone Screen Urine Methadone Screen Ur Methadone Confirm Ur Barbiturates Screen Ur Barbiturate Confirm Ur Phencyclidine Scrn Urine PCP Confirm Ur Amphetamines Screen U Amphetamines Confirm U Benzodiazepines Scrn U Benzodiazepine Confm Urine Cocaine Screen Urine Cocaine Confirm U Cannabinoids Confirm U Marijuana (THC) Screen 09/24/20 09/24/20 06:35 06:35 WBC 8.3 RBC 5.33 Hgb 15.5 Hct 45.1 MCV 84.6 MCH 29.1 MCHC 34.4 RDW 12.6 Plt Count 221 MPV 9.9 Neut % (Auto) 60.9 Lymph % (Auto) 24.8 [place] % (Auto) 9.3 Eos % (Auto) 3.9 Baso % (Auto) 1.1 Lymph # (Auto) 2.06 [place] # (Auto) 0.77 Eos # (Auto) 0.32 Baso # (Auto) 0.09 Absolute Neutrophils 5.05 ESR VBG Lactic Acid Sodium 136 Potassium 4.4 Chloride 104 Carbon Dioxide 21 L Anion Gap 11.0 BUN 46 H Creatinine 2.4 H GFR Calculation 27 Glucose 144 H Calcium 8.3 L Total Bilirubin 0.7 AST 23 ALT 31 Alkaline Phosphatase 129 H Total Creatine Kinase Troponin T C-Reactive Protein 0.10 Total Protein 6.7 Albumin 3.1 L Globulin 3.6 Albumin/Globulin Ratio 0.9 L Triglycerides Cholesterol LDL Cholesterol, Calc Non-HDL Cholesterol HDL Cholesterol Procalcitonin Urine Opiates Screen Ur Opiates Confirm Ur Oxycodone Screen Urine Methadone Screen Ur Methadone Confirm Ur Barbiturates Screen Ur Barbiturate Confirm Ur Phencyclidine Scrn Urine PCP Confirm Ur Amphetamines Screen U Amphetamines Confirm U Benzodiazepines Scrn U Benzodiazepine Confm Urine Cocaine Screen Urine Cocaine Confirm U Cannabinoids Confirm U Marijuana (THC) Screen Discharge Plan Patient/Caregiver Discharge Instructions Prescriptions: No Action (DME) blood sugar diagnostic strip See Dose Instructions .ROUTE .MEDSUPPLY Qty: 50 RF: 0 cefdinir 300 MG capsule 300 mg PO BID Qty: 12 RF: 0 lisinopril 10 MG tablet 10 mg PO DAILY Qty: 30 RF: 0 glipizide-metformin 1 EACH tablet 1 each PO BID Qty: 60 RF: 0 Follow Up Plan Follow up with: Sybil Pike ARNP [Primary Care Provider] - Patient Disposition: Left Against Medical Advice Prognosis: Serious QUALITY VTE Deep Vein Thrombosis/Pulmonary Embolism Present on Admission: Yes
[2020-09-24] MEDS ORDERED: CYANOCOBALAMIN (VITAMIN B-12) 500 MCG TABLET PO SCH (21:00)
[2020-09-24] MEDS ORDERED: SENNOSIDES/DOCUSATE SODIUM 1 TAB TABLET PO SCH (21:00)
[2020-09-24] MEDS ORDERED: DOCUSATE SODIUM 100 MG CAPSULE PO SCH (21:00)
[2020-09-24] MEDS ORDERED: HEPARIN 5,000 UNIT/ML VIAL SQ SCH (21:00)
[2020-09-25] MEDS ORDERED: MULTIVIT,THER IRON,CA,FA & MIN 1 TABLET PO SCH (09:00)
[2020-09-25] MEDS ORDERED: THIAMINE 100 MG in 0.9 % SODIUM CHLORIDE 50 ML IV SCH (09:00)
[2020-09-25] MEDS ORDERED: ASPIRIN 325 MG ENTERIC COATED TABLET PO SCH (09:00)
== END 2020-09-24 19:09 | disposition left against medical advice (07) | DRG 305 ==
LOC: ED 05:43 → ICU 11:30
PROVIDERS: ADMIT Internal Medicine; ATTEND Internal Medicine